=== PATIENT | female | born 1980 | race Hispanic/Latino ===

== ENCOUNTER → 2024-09-16 | Day surgery (SDC) | payer BC ==
[~2024-09-16] MED LIST: BIOTIN2500 MCG PO; COLLANEX1 GM PO; FENTANYL CITRATE/PF 100MCG/2 ML INJ ONE; GLYCOPYRROLATE INJ 0.2 MG/ML VIAL ONE; LACTATED RINGER'S 1,000 ML ONE; LIDOCAINE HCL 2% LOCAL INJ 5 ML SDV VIAL INJ ONE; MIDAZOLAM HCL 2 MG/2 ML VIAL ONE; MULTI-VITAMIN1 EACH PO; PROBIOTIC PO; PROPOFOL IV EMULSION 10 MG/ML 20 ML VIAL ONE; PROTONIX20 MG PO; VITAMIN B-121000 MCG PO
[2024-09-16 10:40] VITALS: TEMP 97.4
[2024-09-16 11:10] VITALS: BP 140/74; PULSE 62; RESP 16; O2SAT 100
== END | disposition home or self-care (01) ==
LOC: OR 09:20
PROVIDERS: ATTEND Internal Medicine Gastroenterology
DX: K31.A0 Gastric intestinal metaplasia, unspecified (principal); K29.50 Unspecified chronic gastritis without bleeding; K31.89 Other diseases of stomach and duodenum; K21.9 Gastro-esophageal reflux disease without esophagitis; K59.00 Constipation, unspecified; E73.9 Lactose intolerance, unspecified; Z98.84 Bariatric surgery status; D64.9 Anemia, unspecified; I10 Essential (primary) hypertension; Z79.899 Other long term (current) drug therapy
CPT/HCPCS: 43239; 93005; J2003; J2250